=== PATIENT | male | born 2000 | race Caucasian/White ===

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

== ENCOUNTER → 2020-09-21 | Outpatient (CLI) | payer BC, OTHER ==
--- NOTE | 2020-09-21 13:36 | REP ---
INDICATION: PAIN IN RT ANKLE AND JOINTS OF RT FOOT COMPARISON: 03/23/2018 TECHNIQUE: AP, lateral, bilateral oblique views. FINDINGS: Diffuse soft tissue swelling primarily involving the lateral malleolus consistent with history of injury. Osseous structures and ankle mortise appear intact and without evidence for a associated fracture or dislocation. IMPRESSION: Soft tissue swelling. No acute fracture or dislocation. <Electronically signed by Jose A Chavez > 09/21/20 [id number]
== END ==
LOC: M WUC 13:06
PROVIDERS: ATTEND Physician Assistant
DX: M25.571 Pain in right ankle and joints of right foot (principal)

== ENCOUNTER 2023-08-22 10:56 | Emergency (ER) | payer BC, OTHER ==
[~2023-08-22] VITALS: Ht 185.4 cm; Wt 126.8 kg
[2023-08-22 11:37] LABS: BASO % 0.4 % (0.0-1.0); EOS # 0.1 10^3/uL (0.0-0.5); EOS % 0.5 % (0.0-3.0); HEMATOCRIT 48.3 % (42.0-52.0); HEMOGLOBIN 16.4 g/dl (13.5-17.5); LYMPH # 2.1 10^3/uL (1.5-5.0); LYMPH % 18.3 % (24.0-44.0); MEAN CORPUSCULAR HEMOGLOBIN 30.7 pg (27.0-33.0); MEAN CORPUSCULAR VOLUME 90.4 fl (80.0-96.0); MONO # 0.6 10^3/uL (0.0-0.8); MONO % 5.1 % (2.0-8.0); NEUTROPHILS # 8.5 10^3/uL (1.5-8.5); NEUTROPHILS % 75.4 % (36.0-66.0); PLATELET COUNT, AUTOMATED 270 10^3/uL (150-450); RED BLOOD COUNT 5.34 10^6/uL (4.30-6.10); WHITE BLOOD COUNT 11.3 10^3/uL (4.0-10.0)
[2023-08-22 12:02] LABS: ALBUMIN 4.2 G/DL (3.2-5.2); ALKALINE PHOSPHATASE 87 U/L (46-116); ALT/SGPT 15 U/L (7.0-40); AST/SGOT < 8 U/L (<34); BILIRUBIN,TOTAL 1.1 MG/DL (0.3-1.2); BLOOD UREA NITROGEN 15 MG/DL (9-23); CALCIUM LEVEL 9.8 MG/DL (8.5-10.1); CARBON DIOXIDE LEVEL 24 MMOL/L (20-31); CHLORIDE LEVEL 110 MMOL/L (98-107); CREATININE FOR GFR 0.91 MG/DL (0.70-1.30); GLOMERULAR FILTRATION RATE > 60.0 (>60); GLUCOSE, FASTING 97 MG/DL (60-100); SODIUM LEVEL 142 MMOL/L (136-145); TOTAL PROTEIN 7.4 G/DL (5.7-8.2)
[2023-08-22 13:46] LABS: MAGNESIUM LEVEL 1.8 MG/DL (1.8-2.4)
[2023-08-22 15:56] VITALS: BP 117/72; TEMP 97.3; O2SAT 98
== END 2023-08-22 15:58 | disposition home or self-care (01) ==
LOC: M ED 10:56
DX: R55 Syncope and collapse (principal); I95.1 Orthostatic hypotension